=== PATIENT | female | born 1995 | race Caucasian/White ===

== ENCOUNTER 2016-07-27 16:38 | Emergency (ER) | payer OTHER ==
--- NOTE | 2016-08-08 08:25 | ER ---
ADMIT: 07/27/2016 RM/LOC: ER [facility] MR#: [id number] [place], [place] [id number] [address]ES [address] [place] [address] Emergency Room Report SEX: F AGE: 20 : 1995 DATE: 07/27/2016 ADDENDUM: This patient comes to the ER because yesterday she was full-legged, she was walking barefooted, she stepped on something unsure what, now today it is becoming increasingly more painful. Denies any drainage. On physical exam, she does have a puncture wound on the ball of her right foot below the right fifth metatarsal. It is tender to palpation, slightly reddened. I do not see any obvious foreign body. X-ray was negative for foreign body. I wrote a prescription for Bactrim and Keflex. She should soak three times a day and needs to be followed up by Jennifer Caruso on to re-evaluate. Please see my T-sheet. GIORGIO Moore / Andrew Kauffman MD / tim JOB #: [id number] CC: Andrew Kauffman MD, Attending Physician Jennifer Caruso, Family Physician
== END 2016-07-27 17:50 | disposition home or self-care (01) ==
LOC: ER 16:38
DX: S91.331A Puncture wound without foreign body, right foot, initial encounter (principal); J45.909 Unspecified asthma, uncomplicated; Z90.49 Acquired absence of other specified parts of digestive tract; Z79.899 Other long term (current) drug therapy; Z23 Encounter for immunization; Y92.828 Other wilderness area as the place of occurrence of the external cause; Y28.8XXA Contact with other sharp object, undetermined intent, initial encounter